=== PATIENT | male | born 1955 ===

== ENCOUNTER 2023-07-08 06:57 | Day surgery (SDC) | payer MEDICARE ==
[2023-07-07 13:19] VITALS: BMI 48.7
[~2023-07-08 06:57] MED LIST: EPINEPHrine 0.3 MG in Ophthalmic Irrigation Solution 500 ML IRR SCH
[2023-07-08] MEDS ORDERED: Cyclopentolate W/ Phenylephrin 40 DROP/2 ML BOT ONE (07:50)
[2023-07-08] MEDS ORDERED: Midazolam HCl 2 mg/2 ml Vial ONE (09:10)
[2023-07-08] MEDS ORDERED: PROPOFOL 200 MG/20 ML VIAL ONE (09:20)
[2023-07-08] MEDS ORDERED: Maxitrol 0.1% Opth Oint 3.5 GM TUBE ONE (09:20)
[2023-07-08] MEDS ORDERED: Lidocaine 4% PF 5 ML AMP ONE (09:20)
[2023-07-08] MEDS ORDERED: Triamcinolone 40 MG/ML VIAL ONE (09:20)
[2023-07-08] MEDS ORDERED: Bupivacaine 0.75% 10 ML VIAL ONE (09:20)
== END 2023-07-08 10:35 | disposition home or self-care (01) ==
LOC: SDC 06:57
PROVIDERS: ATTEND Ophthalmology Retina Specialist
PROC: 08943ZZ Drainage of Right Vitreous, Percutaneous Approach (ICD-10-PCS; principal; 2023-07-08)
PROC: 08DJ3ZZ Extraction of Right Lens, Percutaneous Approach (ICD-10-PCS; 2023-07-08)
DX: H59.021 Cataract (lens) fragments in eye following cataract surgery, right eye (principal)
CPT/HCPCS: J0171; J2250; J2704; J3301; J3490